=== PATIENT | female | born 1945 | race Caucasian/White ===

== ENCOUNTER 2019-01-12 14:06 | Emergency (ER) | payer OTHER ==
[~2019-01-12] VITALS: Ht 167.6 cm; Wt 101.3 kg
[2019-01-12 14:18] VITALS: Ht 167.6 cm; Wt 101.3 kg
[2019-01-12 15:29] LABS: BASOPHIL % 0.4 % (0-2); PLATELET COUNT 207 x10^3mcL (130-400)
[2019-01-12 15:40] LABS: CALCIUM 8.9 mg/dL (8.5-10.1); CARBON DIOXIDE 25.3 mmol/L (21-32); CHLORIDE SERUM 103 mmol/L (98-107); CREATININE SERUM 1.2 mg/dL (0.6-1.0); GLUCOSE SERUM 98 mg/dL (74-106); POTASSIUM SERUM 4.2 mmol/L (3.5-5.1); SODIUM SERUM 138 mmol/L (136-145)
[2019-01-12 15:44] LABS: ALKALINE PHOSPHATASE 91 U/L (46-116); ALT/SGPT 31 U/L (14-59); AST/SGOT 27 U/L (15-37); BILIRUBIN TOTAL 0.33 mg/dL (0.20-1.00); TOTAL PROTEIN, SERUM 6.2 g/dL (6.4-8.2)
[2019-01-12 15:46] LABS: ALBUMIN 2.8 g/dL (3.4-5.0)
[2019-01-12 16:40] LABS: AMPHETAMINE QUAL UR NONE DETECTED (See below)
[2019-01-12 17:34] VITALS: BP 123/61
== END 2019-01-12 17:34 | disposition home or self-care (01) ==
LOC: ED 14:06
PROVIDERS: Emergency Medicine
DX: T40.2X1A Poisoning by other opioids, accidental (unintentional), initial encounter (principal); G89.29 Other chronic pain; M54.9 Dorsalgia, unspecified; Z98.890 Other specified postprocedural states; Y92.89 Other specified places as the place of occurrence of the external cause
CPT/HCPCS: 36415; G0480; J0696; J7030